=== PATIENT | female | born 1975 | race Caucasian/White ===

== ENCOUNTER → 2024-01-04 15:16 | Outpatient (REF) | payer OTHER, SELFPAY | LOC: HWRAD 15:16 | PROVIDERS: ATTENDING PHYSICIAN Family Medicine | DX: M54.50 Low back pain, unspecified (principal) | CPT/HCPCS: 72114 ==

== ENCOUNTER 2024-06-13 14:00 | Inpatient (IN) | payer OTHER, SELFPAY ==
[2024-06-13 07:33] VITALS: BP 144/93
[2024-06-13 07:55] LABS: % Eosinophils 4.2 % (0-6); % Immature Granulocytes 0.5 % (0-0.5); % Lymphocytes 20.5 % (20.5-51.1); % Monocytes 7.5 % (1.7-9.3); % Neutrophils 66.3 % (42.2-75.2); Absolute Basophils 0.1 10^3/uL (0-0.2); Absolute Eosinophils 0.3 10^3/uL (0-0.7); Absolute Lymphocytes 1.3 10^3/uL (1.2-3.4); Absolute Monocytes 0.5 10^3/uL (0.1-0.6); Absolute Neutrophils 4.1 10^3/uL (1.4-6.5); Hematocrit 38.8 % (37.0-47.0); Hemoglobin 13.2 g/dL (12.0-16.0); Mean Corpuscular Hgb 31.1 pg (27.0-31.0); Mean Corpuscular Volume 91.3 fL (81.0-99.0); Mean Platelet Volume 10.2 fL (7.4-10.4); Nucleated Red Blood Cells % 0 %; Platelet Count 266 10^3/uL (130-400); Red Blood Cell Count 4.25 10^6/uL (4.20-5.40); Red Cell Dist. Width 12.4 % (11.5-14.5); White Blood Cell Count 6.2 10^3/uL (4.8-10.8)
[2024-06-13 08:05] LABS: HCG, Serum Qualitative Screen Negative
[2024-06-13 08:06] LABS: Lipase 48 U/L (23-300)
--- NOTE | 2024-06-13 09:10 | ED.GENMED ---
History of Present Illness
<Pedro Zacarias PA-C - Last Filed: 06/13/24 13:11>
General
Chief Complaint: Abdominal Symptoms
Source: patient
Exam Limitations: none
Time Seen by Provider: 06/13/24 08:57
History of Present Illness
History of Present Illness:
49-year-old female otherwise healthy presents complaining of worsening abdominal pain over the past 2 weeks. Burning in nature in the upper abdomen worse after eating or even drinking water. Anytime she takes anything in she has more pain. The
pain does not radiate to the back. There is no associated chest pain shortness of breath cough or fever. She notes her bowel movements has been lacking but denies any dark or tarry stool. She drinks 2 cups of coffee a day and drinks alcohol
socially. She does not use NSAIDs regularly. She tried to pantoprazole over the past 4 days without any significant relief. She did see GI team last year and had an endoscopy colonoscopy which was negative. She also describes a bloating
sensation and at times looks because of her bloating. No other complaints at this time
Phy Exam
<Pedro Zacarias PA-C - Last Filed: 06/13/24 13:11>
Physical Exam
Physical Exam:
General: Well-appearing female no acute respiratory distress
HEENT: Normocephalic atraumatic
Heart: Regular rate and rhythm
Lungs: Clear no wheeze
Abdomen: Soft tender in the epigastric region no guarding or rebound normal bowel sounds nons
Extremities: No cyanosis or edema
Skin is warm no rash
Course
<Pedro Zacarias PA-C - Last Filed: 06/13/24 13:11>
Orders/Labs/Results
Orders:
Orders
06/13/24 Breakfast
Regular
At Your Request: Limited Participation
06/13/24 07:36
Electrocardiogram (*1) Urgent
Reason for Study: Abdominal Pain
EKG- Treatment ONCE
Test Result ONCE
06/13/24 07:45
CA 125 Urgent
Comment: ADD ON
Complete Blood Count/With Diff Urgent
Comprehensive Metabolic Panel Urgent
Comment: ADD ON
HCG, Serum Qualitative Screen Urgent
Lipase Urgent
06/13/24 08:53
Add On- LAB Urgent
Tests Added?: cmp
06/13/24 09:08
0.9% Sodium Chloride 1000 ml [Nss] 1,000 ml IV BOLUS
Famotidine [Pepcid] 20 mg IV NOW STA
Mag Hydrox/Al Hydrox/Simeth [Maalox] 30 ml Phenobarb/Hyoscy/Atropine/Scop [] 10 ml Viscous Lidocaine 2% [Xylocaine Viscous Cup] 10 ml PO NOW
06/13/24 09:10
Mag Hydrox/Al Hydrox/Simeth [Maalox] 30 ml .ROUTE .STK-MED ONE
Phenobarb/Hyoscy/Atropine/Scop [] 10 ml .ROUTE .STK-MED ONE
Viscous Lidocaine 2% [Xylocaine Viscous Cup] 15 ml .ROUTE .STK-MED ONE
06/13/24 09:33
US Abdomen Complete/Upper Urgent
Comment:
Reason For Exam: abdominal pain
06/13/24 11:12
CT Abd/pelvis W Iv Cont Urgent
Comment:
Reason For Exam: abdominal pain, ascites
06/13/24 12:38
Add On- LAB Urgent
Tests Added?: ca-125
06/13/24 13:01
US Pelvis W Transvag Combined Urgent
Comment:
Reason For Exam: mass
06/13/24 13:29
[facility] CONSULT Urgent
Consulting Provider: Cruz Pang
Was physician already notified: Yes
Reason for Consult/Procedure: ascites
Acknowledgement that appropriate orders are entered: Yes
06/13/24 13:30
[facility] Cytology Routine
Date Specimen was Collected: 06/13/24
Time Specimen was Collected: 15:30
Source: Peritoneal Fluid
Clinical Impression: possible ovarian CA
06/13/24 13:36
Admit/Transfer Patient As Directed
Co-Sign Provider:
Level of Care: Inpatient admission
Assign to:: Medical/Surgical
Physician / Group: htay
Diagnosis: Concerning for Malignant ovarian CA
Reason for Hospitalization: large Ovarian mass with new large ascites
Concerning for Malignant ovarian CA with metastatic to peritoneum
Expected length of stay greater than two midnights?: Yes
ELOS- Estimated Length of Stay in days: 3
I certify the patient meets the requirements for IP care: Yes
06/13/24 13:37
Code Status As Directed
Resuscitation Status: Full Code
06/13/24 15:33
Body Fluid Albumin Routine
Fluid Source: Peritoneal (Ascites)
Date Specimen was Collected: 06/13/24
Time Specimen was Collected: 15:30
Body Fluid Amylase Routine
Fluid Source: Peritoneal (Ascites)
Date Specimen was Collected: 06/13/24
Time Specimen was Collected: 15:30
Body Fluid Cell Count Routine
What is the Body Fluid: peritoneal fluid
Date Specimen was Collected: 06/13/24
Time Specimen was Collected: 15:30
Body Fluid LDH Routine
Fluid Source: Peritoneal (Ascites)
Date Specimen was Collected: 06/13/24
Time Specimen was Collected: 15:30
Body Fluid Protein Routine
Fluid Source: Peritoneal (Ascites)
Date Specimen was Collected: 06/13/24
Time Specimen was Collected: 15:30
Fluid Culture with Gram Stain Routine
JIMMY Source: Peritoneal Fluid
Specimen Description:
Date Specimen was Collected: 06/13/24
Time Specimen was Collected: 15:30
06/13/24 16:44
Acetaminophen [Tylenol] 650 mg PO Q4HPRN PRN
Bisacodyl [Dulcolax] 10 mg RECTAL [id number] PRN
Docusate W/Senna [Senokot-S] 1 tablet PO BIDPRN PRN
Polyethylene Glycol Powder [Miralax] 17 grams PO DAILYPRN PRN
06/13/24 16:44
HEMATOLOGY CONSULT Routine
Consulting Provider: Dereck Segundo
Was physician already notified: Yes
Reason for consult: large Ovarian mass with new large ascites
Body Fluid Albumin Routine
Fluid Source: Peritoneal (Ascites)
Body Fluid Amylase Routine
Fluid Source: Peritoneal (Ascites)
Body Fluid Cell Count Routine
What is the Body Fluid: peritoneal fluid
Comment: post procedure
Body Fluid LDH Routine
Fluid Source: Peritoneal (Ascites)
Body Fluid Protein Routine
Fluid Source: Peritoneal (Ascites)
Fluid Culture with Gram Stain Routine
JIMMY Source: Peritoneal Fluid
Specimen Description:
Comment: Post Procedure
Activity As Directed
Activity Level: With Assistance
Intake/ Output As Directed
Frequency: Per unit guidelines
Vital Signs As Directed
Frequency: Per unit guidelines
Weight As Directed
Frequency: Daily
DX Deep Vein Thrombosis Video Routine
06/13/24 18:00
Enoxaparin Sodium [Lovenox] 40 mg SC QPM
06/14/24 06:00
Basic Metabolic Panel IN AM
CA 125 IN AM
CA 19-9 [S] IN AM
CEA IN AM
Complete Blood Count/No Diff IN AM
Gram Stain IN AM
JIMMY Source: Abdomen
Specimen Description:
Abnormal Lab Results
06/13/24
07:45
MCH 31.1 H pg
(27.0-31.0)
Total Protein 6.2 L g/dl
(6.3-8.2)
06/13/24 07:45
06/13/24 07:45
Vital Signs
Initial and Last Documented VS:
Initial Vital Signs
Temp Pulse Resp BP Pulse Ox
98.1 F 84 16 144/93 98
06/13/24 07:33 06/13/24 07:33 06/13/24 07:33 06/13/24 07:33 06/13/24 07:33
Last Documented Vital Signs
Temp Pulse Resp BP Pulse Ox
98 F 92 18 134/73 100
06/13/24 14:56 06/13/24 14:56 06/13/24 14:56 06/13/24 14:56 06/13/24 14:56
<Rodríguez Aquino, DO - Last Filed: 06/13/24 17:13>
Orders/Labs/Results
Orders:
Orders
06/13/24 Breakfast
Regular
At Your Request: Limited Participation
06/13/24 07:36
Electrocardiogram (*1) Urgent
Reason for Study: Abdominal Pain
EKG- Treatment ONCE
Test Result ONCE
06/13/24 07:45
CA 125 Urgent
Comment: ADD ON
Complete Blood Count/With Diff Urgent
Comprehensive Metabolic Panel Urgent
Comment: ADD ON
HCG, Serum Qualitative Screen Urgent
Lipase Urgent
06/13/24 08:53
Add On- LAB Urgent
Tests Added?: cmp
06/13/24 09:08
0.9% Sodium Chloride 1000 ml [Nss] 1,000 ml IV BOLUS
Famotidine [Pepcid] 20 mg IV NOW STA
Mag Hydrox/Al Hydrox/Simeth [Maalox] 30 ml Phenobarb/Hyoscy/Atropine/Scop [] 10 ml Viscous Lidocaine 2% [Xylocaine Viscous Cup] 10 ml PO NOW
06/13/24 09:10
Mag Hydrox/Al Hydrox/Simeth [Maalox] 30 ml .ROUTE .STK-MED ONE
Phenobarb/Hyoscy/Atropine/Scop [] 10 ml .ROUTE .STK-MED ONE
Viscous Lidocaine 2% [Xylocaine Viscous Cup] 15 ml .ROUTE .STK-MED ONE
06/13/24 09:33
US Abdomen Complete/Upper Urgent
Comment:
Reason For Exam: abdominal pain
06/13/24 11:12
CT Abd/pelvis W Iv Cont Urgent
Comment:
Reason For Exam: abdominal pain, ascites
06/13/24 12:38
Add On- LAB Urgent
Tests Added?: ca-125
06/13/24 13:01
US Pelvis W Transvag Combined Urgent
Comment:
Reason For Exam: mass
06/13/24 13:29
[facility] CONSULT Urgent
Consulting Provider: Cruz Pang
Was physician already notified: Yes
Reason for Consult/Procedure: ascites
Acknowledgement that appropriate orders are entered: Yes
06/13/24 13:30
[facility] Cytology Routine
Date Specimen was Collected: 06/13/24
Time Specimen was Collected: 15:30
Source: Peritoneal Fluid
Clinical Impression: possible ovarian CA
06/13/24 13:36
Admit/Transfer Patient As Directed
Co-Sign Provider:
Level of Care: Inpatient admission
Assign to:: Medical/Surgical
Physician / Group: htay
Diagnosis: Concerning for Malignant ovarian CA
Reason for Hospitalization: large Ovarian mass with new large ascites
Concerning for Malignant ovarian CA with metastatic to peritoneum
Expected length of stay greater than two midnights?: Yes
ELOS- Estimated Length of Stay in days: 3
I certify the patient meets the requirements for IP care: Yes
06/13/24 13:37
Code Status As Directed
Resuscitation Status: Full Code
06/13/24 15:33
Body Fluid Albumin Routine
Fluid Source: Peritoneal (Ascites)
Date Specimen was Collected: 06/13/24
Time Specimen was Collected: 15:30
Body Fluid Amylase Routine
Fluid Source: Peritoneal (Ascites)
Date Specimen was Collected: 06/13/24
Time Specimen was Collected: 15:30
Body Fluid Cell Count Routine
What is the Body Fluid: peritoneal fluid
Date Specimen was Collected: 06/13/24
Time Specimen was Collected: 15:30
Body Fluid LDH Routine
Fluid Source: Peritoneal (Ascites)
Date Specimen was Collected: 06/13/24
Time Specimen was Collected: 15:30
Body Fluid Protein Routine
Fluid Source: Peritoneal (Ascites)
Date Specimen was Collected: 06/13/24
Time Specimen was Collected: 15:30
Fluid Culture with Gram Stain Routine
JIMMY Source: Peritoneal Fluid
Specimen Description:
Date Specimen was Collected: 06/13/24
Time Specimen was Collected: 15:30
06/13/24 16:44
Acetaminophen [Tylenol] 650 mg PO Q4HPRN PRN
Bisacodyl [Dulcolax] 10 mg RECTAL [id number] PRN
Docusate W/Senna [Senokot-S] 1 tablet PO BIDPRN PRN
Polyethylene Glycol Powder [Miralax] 17 grams PO DAILYPRN PRN
06/13/24 16:44
HEMATOLOGY CONSULT Routine
Consulting Provider: Dereck Segundo
Was physician already notified: Yes
Reason for consult: large Ovarian mass with new large ascites
Body Fluid Albumin Routine
Fluid Source: Peritoneal (Ascites)
Body Fluid Amylase Routine
Fluid Source: Peritoneal (Ascites)
Body Fluid Cell Count Routine
What is the Body Fluid: peritoneal fluid
Comment: post procedure
Body Fluid LDH Routine
Fluid Source: Peritoneal (Ascites)
Body Fluid Protein Routine
Fluid Source: Peritoneal (Ascites)
Fluid Culture with Gram Stain Routine
JIMMY Source: Peritoneal Fluid
Specimen Description:
Comment: Post Procedure
Activity As Directed
Activity Level: With Assistance
Intake/ Output As Directed
Frequency: Per unit guidelines
Vital Signs As Directed
Frequency: Per unit guidelines
Weight As Directed
Frequency: Daily
DX Deep Vein Thrombosis Video Routine
06/13/24 18:00
Enoxaparin Sodium [Lovenox] 40 mg SC QPM
06/14/24 06:00
Basic Metabolic Panel IN AM
CA 125 IN AM
CA 19-9 [S] IN AM
CEA IN AM
Complete Blood Count/No Diff IN AM
Gram Stain IN AM
JIMMY Source: Abdomen
Specimen Description:
Abnormal Lab Results
06/13/24
07:45
MCH 31.1 H pg
(27.0-31.0)
Total Protein 6.2 L g/dl
(6.3-8.2)
06/13/24 07:45
06/13/24 07:45
Vital Signs
Initial and Last Documented VS:
Initial Vital Signs
Temp Pulse Resp BP Pulse Ox
98.1 F 84 16 144/93 98
06/13/24 07:33 06/13/24 07:33 06/13/24 07:33 06/13/24 07:33 06/13/24 07:33
Last Documented Vital Signs
Temp Pulse Resp BP Pulse Ox
98 F 92 18 134/73 100
06/13/24 14:56 06/13/24 14:56 06/13/24 14:56 06/13/24 14:56 06/13/24 14:56
Clarklt;Pedro Zacarias PA-C - Last Filed: 06/13/24 13:11>
MDM/Problems Addressed
Differential Diagnosis Includes:
Abdominal pain. Consider gastritis versus ulcer versus biliary colic versus colitis or enteritis will check labs. Fluids ordered GI cocktail ordered. Start with ultrasound of abdomen with the epigastric discomfort. If negative consider CT.
<Pedro Zacarias PA-C - Last Filed: 06/13/24 13:11>
*Critical Care Note
Total Time (30-74mins, 75-104mins- exclusive of procedures): Not Applicable
<Rodríguez Aquino DO - Last Filed: 06/13/24 17:13>
*Critical Care Note
Total Time (30-74mins, 75-104mins- exclusive of procedures): 35-minute
<Pedro Zacarias PA-C - Last Filed: 06/13/24 13:11>
Update Note
Update Note:
Ultrasound demonstrated large amount of ascites with nodular appearing liver to suggest possible cirrhosis. This was followed by CT of the abdomen which unfortunately flows 3 cm mass likely arising from the left ovary and potential peritoneal
involvement with a large amount of ascites. On CT scan, liver appears normal. Patient made aware of the concerning findings on CT. Emergency team reached out to green chain operator/onc surgery who recommended admission and further workup including pelvic
ultrasound, paracentesis and CT-guided biopsy. Patient made aware of plan.
ED Attending Note
<Pedro Zacarias PA-C - Last Filed: 06/13/24 13:11>
-
Portions of this chart may have been created with voice recognition software.� Occasional wrong word or��sound alike� substitutions may have occurred due to the inherent limitations of voice recognition software.
<Rodríguez Aquino DO - Last Filed: 06/13/24 17:13>
ED Attending Note
Patient seen and examined by attending physician: Yes
I performed the substantive portion of visit, reviewed & personally made and approve the management plan that is documented in note by myself or JEEVAN.: Yes
ED Attending Note:
Agree with above. Unfortunate 49-year-old female found to have ovarian mass with ascites and possible peritoneal implants. Case was discussed with [employer] Machine Set Up Mechanic onc and further instructions given. Lengthy discussion with patient and her . Several
reevaluations performed. Patient remained stable albeit upset and concerned.
Discharge Plan
Departure
Patient Disposition: Admit
Date of Disposition: 06/13/24
Time of Disposition: 13:09
Presentation/result/management discussed w/ accepting MD/DO: Hospitalist
Discharge Problem:
Abdominal pain, Mass of ovary
Interventions
Interventions:
*Risk Screen - Suicide Last Done: 06/13/24 07:33
*General Assessment Last Done: 06/13/24 12:46
*Neglect/Abuse Screening Last Done: 06/13/24 07:33
*ED COVID-19 Vaccine History Last Done: 06/13/24 12:46
*Nursing Disposition Last Done: 06/13/24 16:38
LC-Lzgeus-Dereohgdqf Assessment Last Done: 06/13/24 09:40
Discharge Date and Time
Discharge Date/Time: 06/13/24 16:38
[2024-06-13] MEDS: MAALOX 50 PO (09:18)
[2024-06-13] MEDS: NSS 1000 IV (09:19)
[2024-06-13] MEDS: PEPCID 20 MG IV (09:19)
[2024-06-13 09:31] LABS: ALT (SGPT) 18 U/L (0-35); AST (SGOT) 30 U/L (14-36); Albumin 3.7 g/dl (3.5-5.0); Alkaline Phosphatase 55 U/L (38-126); Blood Urea Nitrogen 9 mg/dl (7-17); Calcium 9.2 mg/dl (8.4-10.2); Carbon Dioxide 26 mmol/L (22-30); Chloride 105 mmol/L (98-107); Glucose 97 mg/dl (70-99); Sodium 137 mmol/L (135-145); Total Bilirubin 0.9 mg/dl (0.2-1.3); Total Protein 6.2 g/dl (6.3-8.2); eGFR > 60.00
[2024-06-13 12:00] VITALS: BP 121/70
[2024-06-13 12:46] VITALS: BMI 27.2
--- NOTE | 2024-06-13 13:31 | HPS.HSE ---
Family Physician
-
Family Physician: Taras Recinos, DO
Chief Complaint
-
abdominal fullness and bloating
History of Present Illness
49F otherwise healthy seen at ER :
- worsening burning like abdominal pain over the past 2 weeks
- worse after eating or even drinking water.
- also bloating sensation and at times looks because of her bloating.
- the pain does not radiate to the back.
- not associated chest pain shortness of breath cough or fever.
- notes her bowel movements has been lacking but denies any dark or tarry stool.
- drinks 2 cups of coffee a day and drinks alcohol socially.
- not use NSAIDs regularly.
- tried to pantoprazole over the past 4 days without any significant relief.
- did see GI team last year and had an endoscopy colonoscopy which was negative.
Medical History
Past Medical History
Past Medical History: Reports None
Past Surgical History: Reports None
Social History
Tobacco: Non-smoker
Alcohol: Occasional
Family History
Family History: Not pertinent
Allergies / Home Medications
Allergies reflects when Allergies were last updated in [facility].
Home Medications with original date entered in [facility]
Allergy/Medication List:
Allergies
Allergy/AdvReac Type Severity Reaction Status Date / Time
No Known Allergies Allergy Verified 06/13/24 07:35
Review of Systems
-
EENT: Reports No Symptoms
Respiratory: Reports No Symptoms
Cardiac: Reports No Symptoms
Abdomen/GI: Reports See HPI and Abdominal Pain
: Reports No Symptoms
Musculoskeletal: Reports No Symptoms
Skin: Reports No Symptoms
Neurological: Reports No Symptoms
Endocrine: Reports No Symptoms
Hematologic/Lymphatic: Reports No Symptoms
Psych: Reports No Symptoms
Physical Exam
Vital Signs
Vital Signs
Temp Pulse Resp BP Pulse Ox
98.1 F 62 18 121/70 99
06/13/24 07:33 06/13/24 12:00 06/13/24 12:00 06/13/24 12:00 06/13/24 12:00
Physical Exam
General: Well Developed, Well Nourished and No Apparent Distress
HEENT: NormoCephalic, Moist mucous membranes and Atraumatic
Respiratory: Clear
Cardiac: S1/S2 and Regular Rhythm; No Murmur or Rub
GI: Other ( Soft tender in the epigastric region no guarding or rebound normal bowel sounds nons)
Rectal: Deferred by Provider
Musculoskeletal: No Clubbing, No Cyanosis and No Edema
Skin: No Rash
Neuro: Nonfocal/grossly intact
Psych: Calm
Laboratory Results
-
06/13/24 07:45
06/13/24 07:45
Laboratory Results
Total Bilirubin 0.9 mg/dl (0.2-1.3) 06/13/24 07:45
AST 30 U/L (14-36) 06/13/24 07:45
ALT 18 U/L (0-35) 06/13/24 07:45
Alkaline Phosphatase 55 U/L (38-126) 06/13/24 07:45
Lipase 48 U/L (23-300) 06/13/24 07:45
Data Reviewed
-
CT Scan: Report Reviewed by me
Ultrasound: Report Reviewed by me
Lab Data: Labs Reviewed by me
Impression/Plan
-
AP US:
Coarsening of hepatic echotexture with subtle nodularity of the external contour and small to moderate amount of ascites seen in all 4 quadrants. Findings are suggestive of hepatic cirrhosis.
Main portal vein is patent with normal direction of flow. No evidence of a focal hepatic mass lesion.
Gallbladder appears within normal limits with no evidence for biliary ductal dilation.
CT AP:
Findings suspicious for large lobulated heterogeneous pelvic mass (measuring at least 13 cm) midline and to the left most likely of ovarian, possibly left ovarian etiology. Most likely differential diagnostic possibilities would be OVARIAN
MALIGNANCY such as cystadenoma or cystadenocarcinoma. Atypical exophytic uterine mass or other sarcomatous malignancy would be less likely.
Likely two small simple appearing right adnexal/ovarian cysts.
Moderate to large volume ascites with probable areas of peritoneal carcinomatosis..
Mild hepatomegaly.
NO PRIOR hospitalist admission:
ASSESSMENT & PLAN
49F otherwise healthy pw abdominal fullness and pain.
large Ovarian mass with new large ascites
Concerning for Malignant ovarain CA with metastatic to peritoneum
- Gynae TT consulted via ER PUBLIC ADDRESS ANNOUNCER; suggestion are following;
- Typically non surgical approach nowadays and start with figuring out where is the source of disease and then administering some neoadjuvant chemo first.
- CEA, CA125 and CA19-9 tumor markers.
- pelvic US
- IR consult for abdominal paracentesis and CT guided biopsy of omentum
- Hence forth Med oncology consulted
Patient aware of CT findings and concerning for Malignant ovarian CA with metastatic to peritoneum.
DVT Px: LMWH
Code: full code
IP MS
[2024-06-13 14:37] VITALS: BP 130/75
[2024-06-13 14:56] VITALS: BP 134/73; BP_SYST 92
[2024-06-13 16:21] LABS: Body Fluid Amylase 50 U/L; Body Fluid Protein 4.7 g/dl
[2024-06-13 16:51] VITALS: BMI 25.1
[2024-06-13 17:04] LABS: Body Fluid LDH 2532 U/L; Body Fluid Polymorphonuclear 12.9 %; Body Fluid WBC 502 /CUMM
[2024-06-13 17:05] LABS: Body Fluid Mononuclear 87.1 %
[2024-06-13 17:06] LABS: Body Fluid Second Tech EYM
[2024-06-13] MEDS: LOVENOX 40 MG SC (17:07)
[2024-06-13 18:12] LABS: CA 125 659 U/mL (0-35)
[2024-06-13 23:15] VITALS: BP 104/59
[2024-06-14] VITALS (19 sets, daily range): BP systolic 67–142; BP diastolic 68–94; BMI 25.0
--- NOTE | 2024-06-14 05:53 | W.CON.GYNONC ---
Addendum entered and electronically signed by Pierce Henderson MD 06/14/24 06:53:
additional observations after review of CT: bilateral inguinal LN enlarged, may be reactive, large Left PA LN, also has implants on both diaphragms, and pericardiophrenic LN enlarged.
Recommend CT Thorax for better eval and complete imaging for staging work up
Original Note:
Chief Complaint
-
abdominal pain
History of Present Illness
49F F presented to ER with worsening burning like abdominal pain over the past 2 weeks. It seems like she has had almost a year long c/o GERD, she had GI eval in October [address] [facility] including EGD indicating
gastritis, and colonoscopy indicating non bleeding diverticula and small internal hemorrhoids. her preparer samples and repairs care is with [facility], sees Dr Connors for PMDD, had pap in 2021, negative cytology. She has tried to pantoprazole over the past 4
days without any significant relief. While in ER CT shows pelvic mass, ascites and carcinomatosis and they reached out to me.
medications
Prozac
flexeril
deltasone
pcp: Taras Recinos
[facility] Lupis Rios
GI Harjinder Sutherland
Medical History
Past Medical History
Past Medical History: Reports GERD
Additional Past Medical History:
Lumbar disc disease and pain
Anxiety
Breast cyst
PMDD
Additional Past Surgical History:
Hernia repair
Social History
Tobacco: Non-smoker
Alcohol: Occasional
Drug: None
Personal:
Family History
Family History: Other (Father prostate ca, bladder ca, CAD; mother depression, osteoporosis, high cholesterol; sister depression)
Allergies
Allergies reflect when allergies were last updated in [employer] [facility].
No Known Allergies Allergy (Verified 06/13/24 07:35)
Physical Exam
Vital Signs / I&O
Vitals
Temp Pulse Resp BP Pulse Ox
97.4 F 73 16 104/59 95
06/13/24 23:15 06/13/24 23:15 06/13/24 23:15 06/13/24 23:15 06/13/24 23:15
I&O
06/11/24 06/12/24 06/13/24 06/14/24
06:59 06:59 06:59 06:59
Intake Total 480 / 480
Balance 480 / 480
Results
-
[facility]
[address] [place], [place] [address] [address]
[phone]
Patient Name: RASHID CHAPMAN
: 1975
Unit Number: [id number]
Age/Sex: 49/F
Patient
Location: ED
Order Provider: Pedro Zacarias PA-C
Exam Service Date: 06/13/24

Diagnostic Imaging Report
SignedOrder #:[id number]
Exams: US Pelvis W Transvag Combined
PROCEDURE: US Pelvis W Transvag Combined
CLINICAL INDICATION: Pelvic mass.
TECHNIQUE: Grayscale transabdominal and endovaginal imaging.
COMPARISON: None.
FINDINGS: The uterus measures approximately 13.0 x 5.4 x 6.3 cm and the endometrium appears predominantly homogeneous measuring 1.4 cm.
The right ovary measures 3.4 x 2.5 x 2.8 cm and contains two small follicles appear to correspond with findings on concurrent CT.
In the left adnexa, there is a large lobulated heterogeneous mass measuring at least 15 x 7 x 14 cm likely involving otherwise an identified left ovary.
There is at least small volume free fluid noted.
IMPRESSION:
Large left adnexal heterogeneous mass measuring at least 15 cm most likely involving the left ovary and ovarian origin, suspicious for ovarian malignancy.
At least small volume free fluid.
Electronically signed by Pierce Carrasquillo MD, 06/13/2024 2:21 PM
[facility]
[address] [place] [id number]
[phone]
Patient Name: RASHID CHAPMAN
: 1975
Unit Number: [id number]
Age/Sex: 49/F
Patient
Location: EMR
Order Provider: Pedro Zacarias PA-C
Exam Service Date: 06/13/24

Diagnostic Imaging Report
SignedOrder #:[id number]
Exams: CT Abd/pelvis W Iv Cont
CPT: [id number]
PROCEDURES: CT Abd/pelvis W Iv Cont
CLINICAL INDICATION: Abdominal pain. Ascites.
TECHNIQUE: A CT examination of the abdomen and pelvis was performed following the administration of intravenous contrast. Oral contrast administered. Coronal and sagittal reformatted images were obtained. Automatic exposure control radiation dose
reduction technology was utilized.
COMPARISON: None.
FINDINGS:
CHEST:The included lung bases are predominantly clear.
ABDOMEN:Hepatic border is predominantly smooth. The liver is overall mildly enlarged at 22 cm without suspected space-occupying lesion. The spleen is within the limits of normal in size and homogeneous in appearance. There is no gross focal
abnormality of the gallbladder and no findings to suggest biliary tract dilatation. Main portal vein appears to be patent. There is symmetric renal excretion. No focal abnormality of the pancreas or adrenal glands are seen. There is moderate to
large volume ascites with probable areas of accompanying peritoneal thickening. Evaluation of the intestinal tract is markedly limited without oral contrast, without intestinal obstruction or free air. The abdominal aorta is normal in caliber. There
is no significant retroperitoneal lymphadenopathy.
PELVIS:The uterus is positioned relatively anteriorly and to the right within the true pelvis. Occupying a majority of the posterior true pelvis midline and to the left is a likely large lobulated heterogeneous cystic and solid appearing mass
measuring at least 11 cm in length, 11 cm in transverse dimension and 13 cm in AP dimension, difficult to measure, contiguous with the uterus. Moderate volume free fluid is also noted. Seen on image 66 series 301 there are likely two small cysts of
the right ovary larger measuring approximately 1.9 cm.
SKELETON:There is no focal suspicious osseous lesion.
IMPRESSION:
Findings suspicious for large lobulated heterogeneous pelvic mass (measuring at least 13 cm) midline and to the left most likely of ovarian, possibly left ovarian etiology. Most likely differential diagnostic possibilities would be OVARIAN
MALIGNANCY such as cystadenoma or cystadenocarcinoma. Atypical exophytic uterine mass or other sarcomatous malignancy would be less likely.
Likely two small simple appearing right adnexal/ovarian cysts.
Moderate to large volume ascites with probable areas of peritoneal carcinomatosis..
Mild hepatomegaly.
Findings discussed by telephone with Pedro Zacarias PA-C in the emergency department at 1200 hours on April 12, 2025.
Electronically signed by Pierce Carrasquillo MD, 06/13/2024 12:02 PM
[facility]imetrics Dose Report: Up-to-date CT equipment and radiation dose reduction techniques were employed. CTDIvol: 10.6 - 10.7 mGy. DLP: 1216 mGy-cm.
Dictated By: Neida COLEMAN,Pierce Ferrera
Dictated Date & Time: 06/13/24 1140
Data Reviewed
-
Diagnostic Radiology: Image personally visualized and interpreted
Impression / Plan
-
49 yo with large pelvic mass, ascites, omental nodularity suggestive of carcinomatosis, ca 125 is 659, highly suggestive of ovary ca.
s/p paracenthesis, 2.5 L, cytology pending. she has had significant pain relief
I recommend
1. MRI pelvis w and wo contrast if possible while inpatient
2. IR consult for core biopsy of omentum (LUQ)--order entered
3. she can be discharged and i will see her in office next week at [facility] with our Med Onc colleagues
4. most likely we need to start with neoadjuvant chemo (NACT) combo of paclitaxel, carbo, and bevacizumab, with plan for interval debulking after 3 cycles
5. need confirmation of histology before starting treatment
6. while upfront surgery is considered, she will likely need multiple bowel resections given appearance on CT and I would probably recommend NACT
7. will also need germline genetic testing, will add somatic tumor testing when confirmed
I am not available until Monday but happy to answer any questions by TT or phone.
Pierce Henderson
Gynecologic Oncology
[facility]
[phone].
[2024-06-14 06:39] LABS: Hematocrit 36.6 % (37.0-47.0); Hemoglobin 12.5 g/dL (12.0-16.0); Mean Corp Hgb Conc. 34.2 g/dL (33.0-37.0); Mean Corpuscular Hgb 30.9 pg (27.0-31.0); Mean Corpuscular Volume 90.6 fL (81.0-99.0); Mean Platelet Volume 10.8 fL (7.4-10.4); Platelet Count 249 10^3/uL (130-400); Red Blood Cell Count 4.04 10^6/uL (4.20-5.40); Red Cell Dist. Width 12.5 % (11.5-14.5); White Blood Cell Count 7.8 10^3/uL (4.8-10.8)
[2024-06-14 07:40] LABS: Blood Urea Nitrogen 10 mg/dl (7-17); Calcium 9.1 mg/dl (8.4-10.2); Carbon Dioxide 25 mmol/L (22-30); Chloride 105 mmol/L (98-107); Estimated Creatinine Clearance > 125 ml/min; Glucose 77 mg/dl (70-99); Sodium 137 mmol/L (135-145); eGFR > 60.00
[2024-06-14 08:02] LABS: CEA 0.77 ng/ml
[2024-06-14 08:04] LABS: CA 125 539 U/mL (0-35)
--- NOTE | 2024-06-14 09:15 | W.PN.UPDATE ---
Update Note
Progress Note Update
Request for biopsy of omental mass. CT studies reviewed. Large adnexal mass, ascites. Ascites and edematous changes in omentum with simple fluid attenuation. There is no identifiable soft tissue attenuation omental mass. There are visible muscular
slips along diaphragm secondary to ascites. No diaphragmatic implants are identified. There are subcentimeter short axis juxtadiaphragmatic, retroperitoneal, iliac, and inguinal lymph nodes. Paracentesis has already been performed. There is no clear
target for percutaneous biopsy.
[2024-06-14] MEDS: LR 1000 IV (10:54)
[2024-06-14] MEDS: FLUSH (NSS) 1 FLUSH IV (10:55)
--- NOTE | 2024-06-14 11:28 | CM ---
Met with pt and family members at bedside
Pt reports she lives in a split-level home with her and 3 children (18,15,13yo); 2 steps to enter, 5 steps to 2nd fl
Independent, employed FT, drives
DME - none
SNF/HH - denies past hx
Has ride at discharge
PCP - Taras Savage
Pharm - [facility] in [place]
Plan - anticipate home no needs
--- NOTE | 2024-06-14 12:11 | W.PN.HOSP.TC ---
Addendum entered and electronically signed by Gael Leon MD 06/14/24 18:18:
Reevaluated patient post iRad large pelvic mass biopsy. Patient currently on bedrest for 3 hours. Patient insisting on going home. Denies any lightheaded and dizziness. Denies any nausea or vomiting. Ordered dinner. Patient stated will go home
and rest. Recommended no strenuous activity. No driving for 24 hours.
Patient to follow-up with Dr. Henderson next week.
More than 30 minutes spent in discharge including
Final examination of the patient
Summarizing hospital stay
Instructions for continuing care to all relevant caregivers
Preparation of discharge records, prescriptions, and referral forms
Total time spent (in minutes): 55
Original Note:
Today's Communication/Plan
-
iRad for left pelvic lesion biopsy
IV fluids
Assessment / Plan
Assessment / Plan
ASSESSMENT & PLAN
49F otherwise healthy pw abdominal fullness and pain.
Large pelvic mass with omental nodularity concerning for ovarian malignancy
Abdominal ascites
-Status post paracentesis with approximately 2200 cc of fluid removed. Fluid cytology pending.
- Typically non surgical approach nowadays and start with figuring out where is the source of disease and then administering some neoadjuvant chemo first.
- CA125 at 659. CEA 0.77. CA 19-[address]
- CT chest with no evidence of metastatic disease in the chest. Bilateral lung scarring. Small to moderate volume of 4 abdominal ascites.
- MRI pelvis Large malignant neoplasm within the pelvis, likely arising from the left ovary as described. The mass displaces adjacent structures within the pelvis without alta invasion.
- Start IVF as with contrast exposure and remains NPO.
- IR consulted and will attempt for left pelvic mass biopsy
- d/w with Dr. Henderson and Dr. Cruz. Awaiting further Onc input.
DVT Px: LMWH
Code: full code
Discussed with patient multiple family was at bedside. Patient states she will talk to her cousin who is also her oncologist in [place].
Dispo-postbiopsy probably can be discharged with outpatient follow-up with oncology and gynecology for further management.
Anticipated Discharge: Within 24 hours
Subjective/Interval History
-
Date of Service: June 14, 2024
States overall improvement in abdominal distention
Denies abdominal pain
Objective Data
-
Labs:
Laboratory Results
06/14/24
05:19
WBC 7.8
Hgb 12.5
Hct 36.6 L
Plt Count 249
Sodium 137
Potassium 4.0
Chloride 105
Carbon Dioxide 25
BUN 10
Creatinine 0.6
Glucose 77
Calcium 9.1
Vital Signs:
Vital Signs
Temp Pulse Resp BP Pulse Ox
97.8 F 70 16 118/70 98
06/14/24 08:09 06/14/24 08:09 06/14/24 08:09 06/14/24 08:09 06/14/24 08:09
I&O
06/13/24 06/14/24 06/15/24
06:59 06:59 06:59
Intake Total 960 / 960
Balance 960 / 960
Physical Exam
-
General: Well Developed and No Apparent Distress
HEENT: Normocephalic, Atraumatic and Moist Mucous Membranes
Respiratory: Negative Non Labored Respirations or Accessory Resp Muscle Use
GI: Distended; Negative Organomegaly
Rectal: Deferred by Provider
Musculoskeletal: No Clubbing, No Cyanosis and No Edema
Skin: Negative Rash
Neuro: Awake, Alert, Oriented, AO x 3, No Motor Deficits and Nonfocal/Grossly Intact
Psych: Calm
[2024-06-14 14:53] LABS: PT 13.5 Sec (11.4-14.6)
--- NOTE | 2024-06-14 17:37 | PTCARENOTE ---
pt received from IR via stretcher to room 2105 at 1735. pt assisted to bed by IRKAITLYN RN. VS: 97.9-74-16-138/80, pox 96% on RA. Right buttock band aid clean and dry. no hematoma, bleeding noted. pt educated on Bedrest x 3 hours. pt and
verbalized understanding.
--- NOTE | 2024-06-14 18:18 | W.DCSUMMARY ---
Discharge Summary
Discharge Data
Date of Admission: 06/13/24
Date of Discharge: 06/14/24
-
Pending Results: Yes
Additional Pending Results:
Ascitic fluid cytology results
Ascitic fluid culture
Large pelvic mass biopsy results
Above results to be followed up with outreach rep in the office next week
Hospital Course
49-year-old female who is presenting with concern of abdominal fullness. Patient underwent extensive imaging. CT abdomen pelvis w/Findings suspicious for large lobulated heterogeneous pelvic mass (measuring at least 13 cm) midline and to the left
most likely of ovarian, possibly left ovarian etiology. Most likely differential diagnostic possibilities would be OVARIAN MALIGNANCY such as cystadenoma or cystadenocarcinoma. Atypical exophytic uterine mass or other sarcomatous malignancy would be
less likely. Pelvis US Large left adnexal heterogeneous mass measuring at least 15 cm most likely involving the left ovary and ovarian origin, suspicious for ovarian malignancy. MRI pelvis w/ Large malignant neoplasm within the pelvis, likely
arising from the left ovary as described. The mass displaces adjacent structures within the pelvis without alta invasion. Status post paracentesis with 2200 cc fluid removed. Fluid culture preliminary negative. Cytology sent. Patient also
underwent large pelvic mass biopsy by interventional radiology. Patient was evaluated by gynecology with plan to follow-up with the biopsy result in the office next week with plan to start chemotherapy.
Discharge Plan
-
Patient Disposition: Home (Routine Discharge)
Discharge Diagnosis/Procedures: Large pelvic mass with omental nodularity concerning for ovarian malignancy status post biopsy
Abdominal ascites
Status post paracentesis
Condition: Fair
Diet: Regular
Activity: No strenuous activity
Additional Activity: 48h
Driving Restrictions: No driving for 24 hours
Activity Restrictions/Additional Instructions:
Follow-up with biopsy results with [employer] oncologist.
Referrals:
Taras Recinos, DO [Family Provider] - in less than 1 week
Pierce Henderson MD [Active] - None (call to make appt. )
Prescriptions:
Continued
fluoxetine 10 mg Capsule
10 mg PO DAILY
Discharge Orders:
Discharge Patient (As Directed); Ordered 06/14/24
Ordered By: Gael Leon
Discharge Date and Time
Print Language: FAROESE
[2024-06-14] MEDS: LOVENOX SC (18:29)
[2024-06-16 00:19] LABS: CA 19-9 40 U/mL (<=35)
== END 2024-06-14 20:30 | disposition home or self-care (01) | DRG 755 ==
LOC: 2 SOUTH 14:00
PROVIDERS: Emergency Medicine; Physician Assistant; Radiology Diagnostic Radiology; Radiology Vascular & Interventional Radiology; ADMITTING PHYSICIAN Internal Medicine; ATTENDING PHYSICIAN Hospitalist; CONSULT PHYSICIAN Obstetrics & Gynecology Gynecologic Oncology; EMERGENCY PHYSICIAN Emergency Medicine; FAMILY PHYSICIAN Family Medicine
PROC: 0W9G3ZZ Drainage of Peritoneal Cavity, Percutaneous Approach (ICD-10-PCS; 2024-06-13)
PROC: 0WBH3ZX Excision of Retroperitoneum, Percutaneous Approach, Diagnostic (ICD-10-PCS; 2024-06-14)
DX: C56.2 Malignant neoplasm of left ovary (principal); C78.6 Secondary malignant neoplasm of retroperitoneum and peritoneum; R18.0 Malignant ascites; K21.9 Gastro-esophageal reflux disease without esophagitis; F32.81 Premenstrual dysphoric disorder; F41.9 Anxiety disorder, unspecified; M51.9 Unspecified thoracic, thoracolumbar and lumbosacral intervertebral disc disorder; Z80.52 Family history of malignant neoplasm of bladder; Z81.8 Family history of other mental and behavioral disorders; Z82.62 Family history of osteoporosis; Z80.42 Family history of malignant neoplasm of prostate; Z82.49 Family history of ischemic heart disease and other diseases of the circulatory system; Z83.438 Family history of other disorder of lipoprotein metabolism and other lipidemia
CPT/HCPCS: 88305; 49083; 49180; 71260; 72197; 74177; 76700; 76830; 76856; 77012; 80048; 80053; 82042; 82150; 82378; 83615; 83690; 84157; 84703; 85025; 85027; 85610; 86301; 86304; 87015; 87070; 87205; 88112; 88333; 88341; 88342; 89051; 93005; 96361; 96374; 99152; 99153; 99291; A9575; Q9967

== ENCOUNTER → 2024-07-31 09:39 | Outpatient (REF) | payer OTHER, SELFPAY ==
[2024-07-31 09:55] VITALS: BP 120/82; BP_SYST 88
[2024-07-31 10:40] VITALS: BP 118/76; BP_SYST 80
[2024-07-31 11:02] VITALS: BP 118/87
[2024-07-31 11:56] LABS: Body Fluid Mononuclear 42.4 %; Body Fluid Polymorphonuclear 57.6 %; Body Fluid WBC 3108 /CUMM
[2024-07-31 12:07] LABS: Body Fluid Second Tech AMA
== END ==
LOC: RADI 09:39
PROVIDERS: FAMILY PHYSICIAN Internal Medicine
DX: C80.1 Malignant (primary) neoplasm, unspecified (principal); R18.0 Malignant ascites
CPT/HCPCS: 49083; 87015; 87070; 87205; 89051

== ENCOUNTER → 2024-08-02 12:32 | Outpatient (REF) | payer OTHER, SELFPAY ==
[2024-08-02 13:00] VITALS: BP 113/77; BP_SYST 85
[2024-08-02 13:25] VITALS: BP 113/82; BP_SYST 89
[2024-08-02 13:32] VITALS: BP 113/82
[2024-08-02 15:31] LABS: Body Fluid Mononuclear 9.2 %; Body Fluid Polymorphonuclear 90.8 %; Body Fluid WBC 15750 /CUMM
[2024-08-02 16:20] LABS: Body Fluid Second Tech DW
== END ==
LOC: RADI 12:32
DX: C80.1 Malignant (primary) neoplasm, unspecified (principal); R18.0 Malignant ascites
CPT/HCPCS: 49083; 89051

== ENCOUNTER 2024-08-03 18:42 | Emergency (ER) | payer OTHER, SELFPAY ==
[2024-08-03 18:46] VITALS: BP 118/86
[2024-08-03 19:19] VITALS: BMI 22.4
--- NOTE | 2024-08-03 19:35 | ED.GENMED ---
History of Present Illness
General
Chief Complaint: Cancer Problem
Source: patient
Exam Limitations: none
Time Seen by Provider: 08/03/24 19:00
Nursing documentation reviewed up to this point in time: agreed with
History of Present Illness
History of Present Illness:
49-year-old female presenting to the emergency department today with concerns of significant nausea and vomiting over the past 3 days or so. Recently started chemo for metastatic ovarian cancer that was diagnosed 2 months ago. Had recent
hysterectomy. Chemo started 5 days ago. Initially felt okay but starting 3 days ago severe nausea vomiting unable to tolerate anything by mouth. No specific abdominal pain or fevers.
Review of Systems
Review of Systems
Allergies reviewed?: Yes
All Other Systems: ROS reviewed and negative except as documented in HPI and ROS
Phy Exam
Physical Exam
Physical Exam:
GENERAL: Alert , in no apparent distress
EYE: pupils equal and reactive
NECK: Supple, no significant adenopathy.
ENT: o/p clr, mmm.
CARDIAC: Regular rate and rhythm .
LUNGS: Clear breath sounds bilaterally, no acute respiratory distress, no wheezes/rales/rhonchi
ABDOMEN: Soft, without focal tenderness, no r/g, no cvat
NEUROLOGICAL: Alert and oriented, no focal neuro deficits
SKIN: Warm and dry, skin intact.
MUSCULOSKELETAL: No edema, well perfused.
PSYCH: Normal and appropriate interaction.
Course
Orders/Labs/Results
Orders:
Orders
08/03/24 19:14
EKG [Electrocardiogram (*1)] Urgent
Reason for Study: Fatigue / Weakness
Ondansetron Injectable [Zofran] 4 mg IV NOW STA
08/03/24 19:15
EKG- Treatment ONCE
0.9% Sodium Chloride 1000 ml [Nss] 1,000 ml IV BOLUS
08/03/24 19:46
CBC/With Diff [Complete Blood Count/With Diff] Urgent
CMP [Comprehensive Metabolic Panel] Urgent
Lipase Urgent
08/03/24 20:54
CT Abd/Pel (IV only)-DH only Urgent
Comment:
Reason For Exam: abd distension pain, hx metastatic ovarian ca, hys
Dicyclomine HCl [Bentyl] 20 mg IM NOW STA
Diphenhydramine [Benadryl] 12.5 mg IV NOW STA
Famotidine [Pepcid] 20 mg IV NOW STA
Prochlorperazine [Compazine] 10 mg IV NOW STA
08/03/24 21:59
Piperacillin/Tazo 4.5 Gram [Zosyn] 4.5 gram in 100 ml IV NOW
08/03/24 22:40
Lactic Acid Urgent
08/03/24 22:42
Urinalysis Reflex To Culture Urgent
Date Specimen was Collected: 08/03/24
Time Specimen was Collected: 22:41
Urine Microscopic Reflex Cult Urgent
08/03/24 23:37
Morphine Sulfate 4 mg IV NOW STA
08/04/24 00:09
Ondansetron Injectable [Zofran] 4 mg IV NOW STA
08/04/24 00:12
Portable Chest Xray [CR Chest Portable - 1 View] Urgent
Comment:
Reason For Exam: check NG tube placement
Reason Study Needs to be Portable: Unable to Transport
Abnormal Lab Results
08/03/24 08/03/24 08/03/24
19:46 22:40 22:42
RBC 3.92 L 10^6/uL
(4.20-5.40)
Hgb 11.2 L g/dL
(12.0-16.0)
Hct 32.5 L %
(37.0-47.0)
Abs Immat Gran (auto) 0.1 H 10^3/uL
(0-0.05)
Absolute Lymphs (auto) 0.4 L 10^3/uL
(1.2-3.4)
Immature Gran % 1.1 H %
(0-0.5)
Neutrophils % 88.9 H %
(42.2-75.2)
Lymphocytes % 7.7 L %
(20.5-51.1)
Monocytes % 1.1 L %
(1.7-9.3)
Sodium 132 L mmol/L
(135-145)
Chloride 97 L mmol/L
(98-107)
Glucose 108 H mg/dl
(70-99)
Lactic Acid 0.5 L mmol/L
(0.7-2.0)
AST 51 H U/L
(14-36)
ALT 55 H U/L
(0-35)
Total Protein 5.1 L g/dl
(6.3-8.2)
Albumin 2.6 L g/dl
(3.5-5.0)
Urine Ketones 3+ A
(Negative)
Ur Occult Blood Reflex 1+ A
(Negative)
Urine Glucose 1+ A
(Negative)
Urine Albumin (Reflex) 2+ A
(Neg - Trace)
08/03/24 19:46
08/03/24 19:46
Vital Signs
Initial and Last Documented VS:
Initial Vital Signs
Temp Pulse Resp BP Pulse Ox
98.2 F 106 20 118/86 95
08/03/24 18:46 08/03/24 18:46 08/03/24 18:46 08/03/24 18:46 08/03/24 18:46
Last Documented Vital Signs
Temp Pulse Resp BP Pulse Ox
98.2 F 87 16 128/80 98
08/03/24 18:46 08/03/24 21:15 08/03/24 21:15 08/03/24 21:15 08/03/24 21:15
MDM/Problems Addressed
MDM/Problems Addressed:
49-year-old female presenting to the emergency department today with concerns of significant nausea and vomiting unable to tolerate by mouth over the past 3 days recently started on chemo for metastatic ovarian cancer though started 5 days ago.
Otherwise on arrival here tachycardic no reproducible abdominal pain. Had recent ascites tap draining 1.6 L a few days ago. Patient did not have significant improvement of symptoms after receiving medications. Concerning the CT scan was
performed. She was found to have a small bowel obstruction with possible pneumatosis. Case immediately discussed with our surgical team that recommended transfer to her surgical team that she saw from 1 month ago at [facility]. Her team at [facility] was
contacted directly and accepted her directly to the ER. She was transferred in stable condition. NG tube was placed prior to transfer.
*Critical Care Note
Total Time (30-74mins, 75-104mins- exclusive of procedures): Critical care statement:
ED Attending Note
-
Portions of this chart may have been created with voice recognition software.� Occasional wrong word or��sound alike� substitutions may have occurred due to the inherent limitations of voice recognition software.
Discharge Plan
Departure
Patient Disposition: Acute Care Hospital
Date of Disposition: 08/03/24
Time of Disposition: 23:02
Patient with high blood pressure during this ER visit?: No
Condition: Fair
Covid-19: Not Applicable
Discharge Problem:
SBO (small bowel obstruction), Pneumatosis intestinalis
Prescriptions:
No Action
fluoxetine 10 mg Capsule
10 mg PO DAILY
Referrals:
Nikhil Zapata, DO [Family Provider] -
Hospital Transfer
Other hospital: [facility]
I certify that the patient requires transfer: Yes
Discussed case with accepting physician: Yes
Reason for transfer: medical necessity, availability of service, specialties available and continuity of care PCP
Interventions
Interventions:
*Risk Screen - Suicide Last Done: 08/03/24 18:46
*General Assessment Last Done: 08/03/24 18:46
*Neglect/Abuse Screening Last Done: 08/03/24 18:46
*ED- Fall Risk Assessment Last Done: 08/03/24 19:20
*ED COVID-19 Vaccine History Last Done: 08/03/24 19:20
*Nursing Disposition Last Done: 08/04/24 00:23
Discharge Date and Time
Print Language: [place]
[2024-08-03] MEDS: ZOFRAN 4 MG IV (19:46)
[2024-08-03] MEDS: NSS 1000 IV (19:46)
[2024-08-03 19:54] LABS: % Basophils 0.4 % (0-2); % Eosinophils 0.8 % (0-6); % Immature Granulocytes 1.1 % (0-0.5); % Lymphocytes 7.7 % (20.5-51.1); % Monocytes 1.1 % (1.7-9.3); % Neutrophils 88.9 % (42.2-75.2); Absolute Immature Granulocytes 0.1 10^3/uL (0-0.05); Absolute Lymphocytes 0.4 10^3/uL (1.2-3.4); Absolute Monocytes 0.1 10^3/uL (0.1-0.6); Absolute Neutrophils 4.7 10^3/uL (1.4-6.5); Hematocrit 32.5 % (37.0-47.0); Hemoglobin 11.2 g/dL (12.0-16.0); Mean Corp Hgb Conc. 34.5 g/dL (33.0-37.0); Mean Corpuscular Hgb 28.6 pg (27.0-31.0); Mean Corpuscular Volume 82.9 fL (81.0-99.0); Mean Platelet Volume 10.1 fL (7.4-10.4); Nucleated Red Blood Cells % 0 %; Platelet Count 313 10^3/uL (130-400); Red Blood Cell Count 3.92 10^6/uL (4.20-5.40); Red Cell Dist. Width 12.4 % (11.5-14.5); White Blood Cell Count 5.3 10^3/uL (4.8-10.8)
[2024-08-03 20:08] LABS: ALT (SGPT) 55 U/L (0-35); AST (SGOT) 51 U/L (14-36); Albumin 2.6 g/dl (3.5-5.0); Alkaline Phosphatase 98 U/L (38-126); Blood Urea Nitrogen 11 mg/dl (7-17); Calcium 8.6 mg/dl (8.4-10.2); Carbon Dioxide 29 mmol/L (22-30); Chloride 97 mmol/L (98-107); Estimated Creatinine Clearance 107 ml/min; Glucose 108 mg/dl (70-99); Lipase 25 U/L (23-300); Potassium 4.2 mmol/L (3.5-5.1); Sodium 132 mmol/L (135-145); Total Bilirubin 0.5 mg/dl (0.2-1.3); Total Protein 5.1 g/dl (6.3-8.2); eGFR > 60.00
[2024-08-03] MEDS: COMPAZINE 10 MG IV (21:05)
[2024-08-03] MEDS: PEPCID 20 MG IV (21:07)
[2024-08-03] MEDS: BENADRYL 12.5 MG IV (21:10)
[2024-08-03] MEDS: BENTYL 20 MG IM (21:12)
[2024-08-03 21:15] VITALS: BP 128/80
[2024-08-03] MEDS: ZOSYN 100 IV (22:43)
[2024-08-03 22:52] LABS: Urine Albumin 2+ (Neg - Trace); Urine Bilirubin Negative (Negative); Urine Character Clear (Clear); Urine Color Yellow; Urine Glucose 1+ (Negative); Urine Ketone 3+ (Negative); Urine Leukocyte Negative (Negative); Urine Nitrite Negative (Negative); Urine Occult Blood 1+ (Negative); Urine Urobilinogen Negative (Neg - 1+)
[2024-08-03 23:01] LABS: Urine Red Blood Cell None Seen /HPF (0-2); Urine Squamous Cell None seen /LPF (Few); Urine White Cell 0-2 /HPF (0-5)
[2024-08-03 23:03] LABS: Lactic Acid 0.5 mmol/L (0.7-2.0)
[2024-08-03] MEDS: MORPHINE SULFATE 4 MG IV (23:41)
[2024-08-04] MEDS: ZOFRAN 4 MG IV (00:13)
== END 2024-08-04 00:24 | disposition short-term general hospital (02) ==
LOC: EMR 18:42
PROVIDERS: Physician Assistant; EMERGENCY PHYSICIAN Emergency Medicine; FAMILY PHYSICIAN Internal Medicine
DX: K56.609 Unspecified intestinal obstruction, unspecified as to partial versus complete obstruction (principal); K63.89 Other specified diseases of intestine; C56.9 Malignant neoplasm of unspecified ovary; C79.9 Secondary malignant neoplasm of unspecified site; Z79.60 Long term (current) use of unspecified immunomodulators and immunosuppressants; Z46.59 Encounter for fitting and adjustment of other gastrointestinal appliance and device; R18.0 Malignant ascites; Z90.710 Acquired absence of both cervix and uterus
CPT/HCPCS: 99285; 96372; 96365; 96375; 96376; 96361; 71045; 74177; 80053; 81003; 81015; 83605; 83690; 85025; 93005; Q9967

== ENCOUNTER → 2024-08-13 08:54 | Outpatient (REF) | payer OTHER, SELFPAY ==
[2024-08-13 09:23] LABS: % Basophils 0.5 % (0-2); % Immature Granulocytes 0.6 % (0-0.5); % Lymphocytes 8.9 % (20.5-51.1); % Monocytes 14.6 % (1.7-9.3); % Neutrophils 75.4 % (42.2-75.2); Absolute Lymphocytes 0.6 10^3/uL (1.2-3.4); Absolute Neutrophils 4.9 10^3/uL (1.4-6.5); Hematocrit 26.4 % (37.0-47.0); Mean Corp Hgb Conc. 34.1 g/dL (33.0-37.0); Mean Corpuscular Hgb 27.7 pg (27.0-31.0); Mean Corpuscular Volume 81.2 fL (81.0-99.0); Mean Platelet Volume 9.3 fL (7.4-10.4); Nucleated Red Blood Cells % 0 %; Platelet Count 533 10^3/uL (130-400); Red Blood Cell Count 3.25 10^6/uL (4.20-5.40); Red Cell Dist. Width 13.4 % (11.5-14.5); White Blood Cell Count 6.5 10^3/uL (4.8-10.8)
== END ==
LOC: REG 08:54
PROVIDERS: ATTENDING PHYSICIAN Obstetrics & Gynecology Gynecologic Oncology
DX: C56.3 Malignant neoplasm of bilateral ovaries (principal)
CPT/HCPCS: 36415; 85025

== ENCOUNTER → 2024-08-13 13:11 | Outpatient (REF) | payer OTHER, SELFPAY ==
[2024-08-13 13:29] VITALS: BP 125/95; BP_SYST 122
[2024-08-13 14:15] VITALS: BP 114/84; BP_SYST 100
[2024-08-13 14:56] LABS: Body Fluid Mononuclear 32.2 %; Body Fluid Polymorphonuclear 67.8 %; Body Fluid WBC 3096 /CUMM
[2024-08-13 15:02] LABS: Body Fluid Second Tech CMB
== END ==
LOC: RADI 13:11
PROVIDERS: FAMILY PHYSICIAN Internal Medicine
DX: C80.1 Malignant (primary) neoplasm, unspecified (principal); R18.0 Malignant ascites
CPT/HCPCS: 49083; 89051

== ENCOUNTER → 2024-08-16 10:32 | Outpatient (REF) | payer OTHER, SELFPAY ==
[2024-08-16 10:50] VITALS: BP 120/83; BP_SYST 87
== END ==
LOC: RADI 10:32
PROVIDERS: FAMILY PHYSICIAN Internal Medicine
DX: R18.8 Other ascites (principal); Z53.8 Procedure and treatment not carried out for other reasons
CPT/HCPCS: 76705

== ENCOUNTER → 2024-08-19 08:42 | Outpatient (REF) | payer OTHER, SELFPAY ==
[2024-08-19 08:55] VITALS: BP 115/86; BP_SYST 95
[2024-08-19 09:05] VITALS: BP 117/90
[2024-08-19 09:42] LABS: Body Fluid Polymorphonuclear 5.3 %; Body Fluid WBC 299 /CUMM
[2024-08-19 09:43] LABS: Body Fluid Mononuclear 94.7 %
[2024-08-19 09:48] LABS: Body Fluid Second Tech CF
== END ==
LOC: RADI 08:42
DX: C80.1 Malignant (primary) neoplasm, unspecified (principal); R18.0 Malignant ascites
CPT/HCPCS: 49083; 89051

== ENCOUNTER → 2024-08-28 09:55 | Outpatient (REF) | payer OTHER, SELFPAY ==
[2024-08-28 10:19] VITALS: BP 113/76; BP_SYST 80
== END ==
LOC: RADI 09:55
PROVIDERS: ATTENDING PHYSICIAN Physician Assistant Medical; FAMILY PHYSICIAN Internal Medicine
DX: Z46.82 Encounter for fitting and adjustment of non-vascular catheter (principal); C56.3 Malignant neoplasm of bilateral ovaries
CPT/HCPCS: 49424; 76080